=== PATIENT | female | born 1980 | race Hispanic/Latino ===

== ENCOUNTER 2018-11-21 19:07 | Observation (INO) | payer SELFPAY ==
[~2018-11-21] VITALS: Ht 144.8 cm; Wt 76.2 kg
--- NOTE | 2018-11-21 19:30 | NUR ---
PATIENT TO ROOM 6. AT [facility] FOR EVAL.
--- NOTE | 2018-11-21 19:33 | NUR ---
AMBULATROY TO BATHROOM FOR URINE SAMPLE.
[2018-11-21 19:47] LABS: URINE BILIRUBIN - DIPSTICK NEGATIVE (NEGATIVE); URINE BLOOD DIPSTICK NEGATIVE (NEGATIVE); URINE COLOR YELLOW; URINE GLUCOSE - DIPSTICK NEGATIVE (NEGATIVE); URINE KETONE NEGATIVE (NEGATIVE); URINE LEUK ESTERASE NEGATIVE (NEGATIVE); URINE NITRITE - DIPSTICK NEGATIVE (Negative); URINE PROTEIN - DIPSTICK 100 mg/dL (NEG-TRACE); URINE SPECIFIC GRAVITY 1.015
[2018-11-21 19:57] LABS: IMMATURE GRANULOCYTES 0.4 % (0.0-5.0); MEAN CELL VOLUME 90.2 fL CALC (80.0-100.0); MEAN CORPUSCULAR HGB 29.9 pG CALC (26.0-32.0); MEAN CORPUSCULAR HGB CONC 33.2 g/L CALC (32.0-36.0); NEUT# 5.96 thou/uL (2.00-7.15); RED BLOOD COUNT 4.28 mill/uL (4.20-5.60); RED CELL DISTRI WIDTH 11.9 % (11.5-15.5)
[2018-11-21 19:57] LABS: URINE RBC 0-2 RBC/hpf (0-5); URINE SQUAMOUS EPITHELIAL CELL FEW EPI/hpf (0-FEW); URINE WBC 0-2 WBC/hpf (0-5)
[2018-11-21 19:58] LABS: HEMATOCRIT 38.6 % (37.0-47.0); HEMOGLOBIN 12.8 g/dl (12.0-16.0)
[2018-11-21 20:07] LABS: AMYLASE 184 u/l (30-110); BILIRUBIN, TOTAL 0.5 mg/dL (0.0-1.4); BUN 16 mg/dL (7-17); BUN/CREATININE RATIO 29 (12-20 (CALC)); CHLORIDE 107 mmol/l (95-108); CREATININE 0.6 mg/dL (0.5-1.0); GFR > 60 ML/MIN (>=60 (CALC)); GFR FOR AFR.AMER. > 60 ML/MIN (>=60 (CALC)); SODIUM 141 mmol/l (137-146); TOTAL PROTEIN 8.1 g/dL (6.3-8.2)
[2018-11-21 20:14] LABS: ALBUMIN 4.6 g/dL (3.2-5.0); ALKALINE PHOSPHATASE 107 u/l (38-126); ANION GAP 12 (6-22 (CALC)); CARBON DIOXIDE 26 mmol/l (22-30); LIPASE 2519 u/l (23-300); SGOT/AST 129 u/l (14-36)
--- NOTE | 2018-11-21 20:30 | NUR ---
PATIENT RESTING ON STRETCHER, TALKING WITH FRIEND. AWAITING CT TO BE COMPLETED.
--- NOTE | 2018-11-21 21:33 | NUR ---
MD AT BEDSIDE TO DISCUSS RESULTS AND PLAN OF CARE.
--- NOTE | 2018-11-21 22:44 | NUR ---
REPORT CALLED TO [facility]. PATIENT READIED FOR TRANSPORT TO FLOOR VIA WHEELCHAIR.
--- NOTE | 2018-11-21 22:48 | NUR ---
PT ARRIVED TO [facility] VIA WHEELCHAIR ACCOMPANIED BY ER NURSE AND PT SPOUSE. PT ALERT AND ORIENTED X3, AMBULATORY. WT OBTAINED VIA DIGITAL STANDING SCALE, PT TOLERATED WELL. AMBULATED WITH STEADY GAIT TO BED. ORIENTED PT TO ROOM AND CALL LIGHT, DISCUSSED DIET AND POC, PT VERBALIZED UNDERSTANDING. PT IS CUBAN SPEAKING ONLY, BAKER PIE SPEAKS CUBAN. IVF INITIATED. PT DENIES PAIN AT THIS TIME, PT SMILING. ADMISSION ASSESSMENT COMPLETED AT THIS TIME. CALL LIGHT IN REACH,CONTINUE TO MONITOR.
[2018-11-21 23:00] VITALS: BP 113/68
[2018-11-22 03:11] VITALS: BP 111/66
--- NOTE | 2018-11-22 06:00 | NUR ---
NEW IV BAG HUNG, PT VOICES NO NEEDS OR COMPLAINTS AT THIS TIME. CALL LIGHT IN REACH,CONTINUE TO MONITOR.
--- NOTE | 2018-11-22 08:10 | NUR ---
ASSESSMENT DONE. PT IS A&O X3. PT DENIES PAIN AT THIS TIME. IVF INFUSING WELL. PT IS NPO. RESPS EVEN AND UNLABORED. PT DENIES NEEDS AT THIS TIME. CALL LIGHT IN REACH.
[2018-11-22 08:23] VITALS: BP 127/75
[2018-11-22 09:38] LABS: CHOLESTEROL HDL RATIO 3.9 (<4.4 (CALC))
--- NOTE | 2018-11-22 12:00 | NUR ---
PT IS SITTING IN CHAIR EATING HER LUNCH. FAMILY IN ROOM. PT DENIES PAIN AT THIS TIME. CALL LIGHT IN REACH.
--- NOTE | 2018-11-22 14:30 | NUR ---
DR. MILIAN AT BEDSIDE TO DISCUSS POC WITH PT ABOUT SURGERY TOMORROW.
[2018-11-22 15:51] VITALS: BP 115/65
--- NOTE | 2018-11-22 16:00 | NUR ---
PT IS SITTING IN RECLINER VISITING WITH FRIEND. PT DENIES PAIN AT THIS TIME OR NEEDS. CALL LIGHT IN REACH.
[2018-11-22 18:43] VITALS: BP 122/74
--- NOTE | 2018-11-22 19:00 | NUR ---
RECIEVED REPORT FROM DAY NURSE. PT UP IN THE CHAIR WATCHING TV. IV INFUSING WELL. WOULD LIKE TO TAKE A SHOWER TONIGHT. NO OTHER NEEDS A THTHIS TIME. CALL NULL IN REACH. WILL CONTINUE TO MONITOR.
--- NOTE | 2018-11-22 21:15 | NUR ---
PT UP IN THE CHAIR AT THIS TIME. VISITORS AT BEDSIDE. ASSESMENT COMPLETED AT THIS TIME. IV INFUSING WELL.NO PAIN. WILL CONTINUE TO MONITOR.
--- NOTE | 2018-11-23 | NUR ---
PT RESTING IN BED. SPOKE TO PT ABOUT NPO STATUS. VERBALIZES UNDERSTANDING
--- NOTE | 2018-11-23 04:00 | NUR ---
PT RESTING IN BED WITH EYES CLOSED NO NEEDS AT THIS TIME. WILL CONTINUE TO MONITOR.
[2018-11-23 04:25] VITALS: BP 123/79
[2018-11-23 06:12] LABS: ALBUMIN 3.7 g/dL (3.2-5.0); ALKALINE PHOSPHATASE 88 u/l (38-126); ANION GAP 10 (6-22 (CALC)); BILIRUBIN, TOTAL 0.5 mg/dL (0.0-1.4); BUN 6 mg/dL (7-17); BUN/CREATININE RATIO 14 (12-20 (CALC)); CARBON DIOXIDE 25 mmol/l (22-30); CHLORIDE 109 mmol/l (95-108); CREATININE 0.5 mg/dL (0.5-1.0); GFR > 60 ML/MIN (>=60 (CALC)); GFR FOR AFR.AMER. > 60 ML/MIN (>=60 (CALC)); LIPASE 72 u/l (23-300); SGOT/AST 62 u/l (14-36); SODIUM 140 mmol/l (137-146); TOTAL PROTEIN 6.8 g/dL (6.3-8.2)
--- NOTE | 2018-11-23 08:00 | NUR ---
PT RESTING IN BED NO SIGNS OF DISTRESS NOTED, RESP EVEN AND UNLABORED. PT ALERT AND ORIENTED X3, [place] SPEAKING ONLY, [employer]IST SPEAKS [place] TO COMMUNICATE WITH PT. DISCUSSED POC, CONTINUE NPO FOR SURGERY. IVF INFUSING WITHOUT DIFFICULTY. ASSESSMENT COMPLETED. CALL LIGHT IN REACH,CONTINUE TO MONITOR.
[2018-11-23 08:01] VITALS: BP 116/78
--- NOTE | 2018-11-23 09:16 | NUR ---
PT RESTING IN BED, NO SIGNS OF DISTRESS NOTED, RESP EVEN AND UNLABORED. PT VOICES NO NEEDS OR COMPLAINTS AT THIS TIME. DISCUSSED WITH PT PLANS POST OP SURGERY. DISCUSSED SCD'S AND IS PT IS FAMILIAR WITH SCD FROM [employer]. PROVIDED TEACHING REGARDING IS USE, 1000ML VOLUME DEMONSTRATED ON IS. CALL LIGHT IN REACH,CONTINUE TO MONITOR.
--- NOTE | 2018-11-23 10:08 | NUR ---
RECEIVED CALL FROM OR PT TO BE TAKEN DOWN IN 15 MIN. ENTERED ROOM PT RESTING IN BED, INFORMED PT OR TO ARRIVE SHORTLY TO TAKE HER TO OR. PT VERBALIZED UNDERSTANDING. PT TO BATHROOM TO VOID AND REMOVE PANTS AND UNDERWEAR. GOLD RING REMOVED AND PT PLACE IN HER PURSE. AWAITING OR TO ARRIVE. CONTINUE TO MONITOR.
--- NOTE | 2018-11-23 10:27 | NUR ---
OR NURSE TO BEDSIDE TO TAKE PT TO OR. PT UP TO STRETCHER, IN STABLE CONDITION. CONTINUE TO MONITOR.
--- NOTE | 2018-11-23 12:00 | NUR ---
PT REMAINS IN OR.
--- NOTE | 2018-11-23 13:20 | NUR ---
TO BEDSIDE TO VISITOR TO DISCUSS SURGERY. PT REMAINS IN OR. TO ARRIVE SHORTLY
--- NOTE | 2018-11-23 13:40 | NUR ---
PT ARRIVED FROM OR ON STRETCHER ACCOMPANIED BY OR NURSES X2. PT STABLE AWAKE ALERT. C/O PAIN, ASSISTED PT TO BATHROOM, PT AMBULATED WELL. SISTER AT BEDSIDE. VITALS OBTAINED. KITCHEN CALLED FOR TRAY. AWAITING MEDS TO BE PROFILED TO MEDICATE FOR PAIN. INCISIONS TO ABD CDI WITH DERMABOND. SCD'S IN PLACE. CALL LIGHT IN REACH,CONTINUE TO MONITOR.
--- NOTE | 2018-11-23 15:04 | NUR ---
PT RESTING IN BED, VERY DROWSY. ALERT TO VERBAL STIMULI, FAMILY AT BEDSIDE. MD TO SEE PT AND DISCUSS POSS DISCHARGE. PT VERY DROWSY. IF PT ABLE TO TOLERATED FOOD PT MAY BE DISCHARGED. CALL LIGHT IN REACH,CONTINUE TO MONITOR.
[2018-11-23 16:33] VITALS: BP 107/52
--- NOTE | 2018-11-23 18:13 | NUR ---
PT TOLERATING DINNER WELL, C/O PAIN TO HER MID BACK DENIES PAIN TO HER ABD. PT MEDICATED FOR PAIN AT THIS TIME. INCREASED DIET IN AM. CALL LIGHT IN REACH,CONTINUE TO MONITOR.
[2018-11-23 18:30] VITALS: BP 109/52
--- NOTE | 2018-11-23 19:34 | NUR ---
ASSESSMENT COMPLETED. NO DISTRESS NOTED; SCD'S APPLIED. ENCOURAGED TO USE INCENTIVE SPIROMETER AND VERBALIZES UNDERSTANDING. IV SITE PATENT AND SL, FLUSHES WELL. X3 PUNCTURE INCISIONS NOTED TO ABDOMEN WITH DERMABOND INTACT. REPORTS PAIN IS DOWN TO A 2/10 AFTER PAIN PILL EARLIER IN SHIFT. WARM PACK APPLIED TO BACK. ENCOURAGED TO CALL FOR ANY NEEDS. FAMILY AT BEDSIDE. CALL LIGHT IS IN REACH.
--- NOTE | 2018-11-23 21:35 | NUR ---
PT. GETTING BACK INTO BED AFTER VOIDING IN TOILET. DENIES NEEDS/PAIN. IS STAYING THE NIGHT AT BEDSIDE AND PROVIDED WITH BLANKET AND COFFEE. ENCOURAGED TO CALL FOR ANY NEEDS. CALL LIGHT IS IN REACH. WILL CONTINUE TO MONITOR.
[2018-11-23 23:23] VITALS: BP 108/54
--- NOTE | 2018-11-23 23:30 | NUR ---
PT. RESTING IN BED WITH NO DISTRESS NOTED; C/O VERY SLIGHT ABD PAIN AND DENIES NEEDS FOR PAIN MEDICATION AT THIS TIME AND REPORTS THAT SHE WILL CALL THIS [employer] IF SHE NEEDS IT. CALL LIGHT IS IN REACH.
--- NOTE | 2018-11-24 01:37 | NUR ---
PT. RESTING IN BED WITH AT BEDSIDE. DENIES NEEDS AND VOICES NO CONCERNS. DENIES NEEDS FOR PAIN MEDICATION AT THIS TIME. SCD'S IN PLACE. ENCOURAGED TO CALL FOR ANY NEEDS. CALL LIGHT IS IN REACH.
[2018-11-24 04:02] VITALS: BP 115/69
--- NOTE | 2018-11-24 04:10 | NUR ---
PT. C/O BACK PAIN AND STILL NO BM, MEDICATED WITH ORDERED MOM AND PERCOCET. WILL REASSESS. DENIES FURTHER NEEDS. CALL LIGHT IS IN REACH. WILL CONTINUE TO MONITOR.
--- NOTE | 2018-11-24 06:27 | NUR ---
PT. RESTING IN BED WITH NO DISTRESS NOTED. DENIES NEEDS/PAIN. ENCOURAGED TO CALL FOR ANY NEEDS. CALL LIGHT IS IN REACH.
[2018-11-24 07:33] VITALS: BP 122/69
--- NOTE | 2018-11-24 07:33 | NUR ---
PT RESTING IN BED, NO SIGNS OF DISTRESS NOTED, RESP EVEN AND UNLABORED. PT ALERT AND ORIENTED X3. AT BEDSIDE. PT DENIES PAIN AT THIS TIME. PT STATES SHE HAS PASSED GAS BUT NO BM DISCUSSED ALTERNATIVES WHEN PT GOES HOME. ABD INCISIONS X4 CDI WITH DERMABOND INTACT. VSS. ASSESSMENT COMPLETED AT THIS TIME, CALL LIGHT IN REACH,CONTINUE TO MONITOR.
--- NOTE | 2018-11-24 08:33 | NUR ---
PT TOLERATED BREAKFAST WELL, NO SIGNS OF DISTRESS NOTED, RESP EVEN AND UNLABORED. PT AMBULATING IN ROOM, STATES SHE IS STILL PASSING GAS. CALL LIGHT IN REACH,CONTINUE TO MONITOR.
[2018-11-24 11:15] VITALS: BP 110/66
--- NOTE | 2018-11-24 11:26 | NUR ---
PT RESTING IN BED, NO SIGNS OF DISTRESS NOTED,RESP EVEN AND UNLABORED. PT DENIES ANY PAIN OR NEEDS AT THIS TIME. REQUESTING IV REMOVAL, FLUSHED SITE AND LEAKING, IV SITE REMOVED, CATHETER INTACT. CALL LIGHT IN REACH,CONTINUE TO MONITOR.
[2018-11-24] MEDS ORDERED: PERCOCET 5/325M1 TAB PO (14:08)
--- NOTE | 2018-11-24 15:00 | NUR ---
Discharge instructions given. Patient verbalizes understanding of same. Discharged in stable condition via Wheelchair to Home with family. All belongings sent with pt.
== END 2018-11-24 14:56 | disposition home or self-care (01) | DRG 418 ==
LOC: ED 19:07 → ED-I 21:38 → ED 22:11 → MS2 22:12
PROVIDERS: Emergency Medicine; Internal Medicine; ADMIT Internal Medicine; ATTEND Internal Medicine
PROC: 0FT44ZZ Resection of Gallbladder, Percutaneous Endoscopic Approach (ICD-10-PCS; principal; 2018-11-23)
PROC: BF001ZZ Plain Radiography of Bile Ducts using Low Osmolar Contrast (ICD-10-PCS; 2018-11-23)
DX: K85.10 Biliary acute pancreatitis without necrosis or infection (principal); K80.12 Calculus of gallbladder with acute and chronic cholecystitis without obstruction
CPT/HCPCS: G0378; J0131; J1100; J2710; Q9967